=== PATIENT | female | born 1970 | race Caucasian/White ===

== ENCOUNTER 2024-07-14 10:54 | Outpatient (CLI) | payer BC, SELFPAY ==
--- NOTE | 2024-07-14 12:21 | P.ANES_ITS ---
Anesthesia Charges Start Date/Time Anesthesia Start Date: 07/14/24 Anesthesia Start Time: 11:53 Stop Date/Time Anesthesia Stop Date: 07/14/24 Anesthesia Stop Time: 12:16 Coding CPT Codes CPT Codes: LANDON LWR INTST SCR COLSC - [id number] ([id number]) P1 - NORMAL HEALTHY PATIENT, QK - DIRECTOR OF COMMUNICATIONS 2-4 CNCRNT ANES PROC, QX - STRATEGY EXECUTION CONSULTANT SVC W/ MED DIRECTION
--- NOTE | 2024-07-14 12:21 | W.ANESCHARGE ---
Anesthesia Charges Start Date/Time Anesthesia Start Date: 07/14/24 Anesthesia Start Time: 11:53 Stop Date/Time Anesthesia Stop Date: 07/14/24 Anesthesia Stop Time: 12:16 Coding CPT Codes CPT Codes: LANDON LWR INTST SCR COLSC - [id number] ([id number]) P1 - NORMAL HEALTHY PATIENT, QK - APPRENTICE LINEMAN THIRD STEP 2-4 CNCRNT ANES PROC, QX - HUB CUTTER APPRENTICE SVC W/ MED DIRECTION
--- NOTE | 2024-07-14 12:29 | P.ANES_ITS ---
Anesthesia Charges Start Date/Time Anesthesia Start Date: 07/14/24 Anesthesia Start Time: 11:53 Stop Date/Time Anesthesia Stop Date: 07/14/24 Anesthesia Stop Time: 12:16 Coding CPT Codes CPT Codes: LANDON LWR INTST SCR COLSC - [id number] ([id number]) P1 - NORMAL HEALTHY PATIENT, QK - CELL BUILDER 2-4 CNCRNT ANES PROC, QX - CLINICAL LEADER SVC W/ MED DIRECTION
--- NOTE | 2024-07-14 12:29 | W.ANESCHARGE ---
Anesthesia Charges Start Date/Time Anesthesia Start Date: 07/14/24 Anesthesia Start Time: 11:53 Stop Date/Time Anesthesia Stop Date: 07/14/24 Anesthesia Stop Time: 12:16 Coding CPT Codes CPT Codes: LANDON LWR INTST SCR COLSC - [id number] ([id number]) P1 - NORMAL HEALTHY PATIENT, QK - REC THERAPIST 2-4 CNCRNT ANES PROC, QX - CLEAN IN PLACES OPERATOR SVC W/ MED DIRECTION
== END 2024-07-14 10:55 | disposition home or self-care (01) ==
LOC: OP CLINIC 10:57
PROVIDERS: PCP Family Medicine; Visit Provider Internal Medicine Gastroenterology
DX: Z12.11 Encounter for screening for malignant neoplasm of colon (principal); Z86.0101 Personal history of adenomatous and serrated colon polyps
CPT/HCPCS: 00812; 45378; J2704